=== PATIENT | female | born 1940 | race Caucasian/White ===

== ENCOUNTER 2019-08-07 16:04 | Outpatient (CLI) | payer MEDICARE, SELFPAY ==
--- NOTE | ~2019-08-07 | US_ITS ---
EXAMINATION: US venous doppler LE RT DATE: 08/07/2019 17:02 INDICATION: Right lower limb swelling TECHNIQUE: Roberts scale images without and with compression and Doppler images of the right lower extre mity veins were obtained. COMPARISON: None FINDINGS: The right common femoral vein, profunda femoral vein, femoral vein, popliteal vein, peronea l trunk, posterior tibial veins, and greater saphenous vein are patent. IMPRESSION: 1. Patent right lower extremity veins. No evidence of deep venous thrombosis. Reviewed, dictated and finalized at location A.
== END 2019-08-07 16:05 | disposition home or self-care (01) ==
LOC: ANHIMG 16:17
PROVIDERS: PCP Internal Medicine; Visit Provider Orthopaedic Surgery
DX: M79.89 Other specified soft tissue disorders (principal)
CPT/HCPCS: 93971

== ENCOUNTER 2021-10-16 12:39 | Emergency (ER) | payer MEDICARE, SELFPAY ==
--- NOTE | ~2021-10-16 | XR_ITS ---
EXAMINATION: XR hip RT 2V w AP pelvis DATE: 10/16/2021 13:52 INDICATION: Right hip pain. TECHNIQUE: An anteroposterior view of the pelvis and 2 views of right hip were obtained. COMPARISON: Right hip radiographs 08/28/2017 FINDINGS: There is a total right hip arthroplasty in near-anatomic alignment. No periprosthetic lucen cy to suggest loosening or infection. There is moderate left hip osteoarthritis. There are changes of anterior and posterior fusion procedures at L4-L5. IMPRESSION: 1. Total right hip arthroplasty in near-anatomic alignment. 2. Moderate left hip osteoarthritis. Reviewed, dictated and finalized at location A.
--- NOTE | ~2021-10-16 | XR_ITS ---
EXAMINATION: XR ankle RT min 3V, XR foot RT min 3V DATE: 10/16/2021 13:52 INDICATION: Right foot and ankle pain post fall TECHNIQUE: 1. Anteroposterior, mortise, additional oblique and lateral view of the right ankle were obtained. 2. Dorsoplantar, two oblique and lateral views of the right foot were obtained. COMPARISON: None. FINDINGS: Diffuse osteopenia. Prominent hallux valgus with change of prior bunionectomy and likely realignment osteotomy at the first metatarsal with pin fixation. 4 mm dorsal lateral displacement of an intra-art icular fracture at the lateral base of the right fifth metatarsal. No other fractures identified.. Po lyarticular osteoarthritis, severe at the first metatarsophalangeal joint, moderate severity at the t alonavicular, calcaneocuboid, second and third tarsal metatarsal joints and mild at the right ankle a nd remaining joints in the right foot. Prominent soft tissue swelling about the ankle. No ankle joint effusion. IMPRESSION: 1. Mildly displaced intra-articular fracture at the lateral base of the right fifth metatarsal. Reviewed, dictated and finalized at location A. IMPRESSION: 1. Mildly displaced intra-articular fracture at the lateral base of the right f ifth metatarsal.
[2021-10-16 12:51] VITALS: BP 127/58; PULSE 70; RESP 16; TEMP 36.5; O2SAT 98
--- NOTE | 2021-10-16 13:18 | ED.FALL ---
HPI - Fall General Chief Complaint: Fall Stated Complaint: FALL/INJURED ANKLE/FACE/HIP Time Seen by Provider: 10/16/21 13:15 Source: patient Mode of arrival: ambulatory Limitations: no limitations History of Present Illness HPI Narrative: 80-year-old female presented for complaint of multiple injuries after a fall 3 days ago. She endorses tripping over the carpet, twisting the right ankle, landing on the right hip, and striking the right side of her face on the floor. She denies loss of consciousness. Currently denies any neck pain, numbness, tingling or weakness of the upper extremities. She endorses a history of a right hip replacement and has bruising to the right hip. Endorses using a walker since the fall and states her gait is off. Endorses right ankle swelling and bruising. And reports bruising to the right cheek and jaw. Pain is worse with walking/ movement. Rates about 5/10. She has not taken anything for pain. She denies headache, dizziness, vision changes, nausea, vomiting. Related Data Home Medications Medication Instructions Recorded Confirmed acetaminophen 325 mg tablet 650 mg PO Q6H PRN 03/05/19 02/02/21 (Tylenol) aspirin 81 mg tablet,delayed 81 mg PO DAILY 03/05/19 02/02/21 release (Adult Low Dose Aspirin) metoprolol tartrate 75 mg tablet 75 mg PO Q12H 03/05/19 02/02/21 ascorbate calcium (vitamin C) 500 500 mg PO DAILY 06/16/20 02/02/21 mg tablet cholecalciferol (vitamin D3) 25 25 mcg PO DAILY 06/16/20 02/02/21 mcg (1,000 unit) capsule coenzyme Q10 10 mg capsule (Co 10 mg PO ONCE 06/16/20 02/02/21 Q-10) zinc 50 mg tablet 50 mg PO DAILY 06/16/20 02/02/21 vitamin B complex (B 1 tablet PO DAILY 02/02/21 02/02/21 Complex-Vitamin B12 tablet) Allergies Allergy/AdvReac Type Severity Reaction Status Date / Time ranitidine Allergy Mild nausea Verified 02/02/21 11:36 ciprofloxacin Allergy Unknown unknown Verified 02/02/21 11:36 erythromycin base Allergy Unknown unknown Verified 02/02/21 11:36 hydrocodone Allergy Unknown throat Verified 02/02/21 11:36 tightness iodine Allergy Unknown unknown Verified 02/02/21 11:36 naproxen Allergy Unknown unknown Verified 02/02/21 11:36 pimecrolimus Allergy Unknown unknown Verified 02/02/21 11:36 Rfcndxj-JHW-CwL Reductase Allergy Unknown unknown Verified 02/02/21 11:36 Inhibitor [Xkwlqkx-Qkf-Gvv Reductase Inhibitor] Sulfa (Sulfonamide Allergy Unknown unknown Verified 02/02/21 11:36 Antibiotics) Review of Systems Review of Systems: CONSTITUTIONAL: Denies body aches, fever, chills EYES: Denies visual changes CARDIOVASCULAR: Denies chest pain, palpitations, or edema. RESPIRATORY: Denies dyspnea. GASTROINTESTINAL: Denies abdominal pain, nausea, vomiting, or diarrhea. SKIN: Denies open wounds. MUSCULOSKELETAL: reports right hip, foot/ankle pain NEUROLOGIC: Denies headache, numbness, tingling, or weakness. All systems reviewed & are unremarkable except as noted in HPI and below PMFSH Family History Family History Father Hypertension Family history of coronary artery disease Family history of heart disease in male family member before age 55, Onset Age: 81 Mother Hypertension Cerebrovascular accident, Onset Age: 94 Family history of kidney disease Family history of arthritis Sibling Hypertension Asthma Family history of diabetes mellitus in first degree relative Other Carcinoma of colon Diabetes mellitus Family history of cardiovascular disease Family history of malignant neoplasm Social History Social History Smoking status: Never smoker Second hand tobacco smoke exposure: Yes (long time ago ) Alcohol intake: never Substance use: never Substance use type: does not use Comments At time of signature, I have reviewed and agree with nursing past medical, surgical, social and
== END 2021-10-16 14:55 | disposition home or self-care (01) ==
PROVIDERS: Emergency Provider Nurse Practitioner Family; PCP Internal Medicine
DX: S92.351A Displaced fracture of fifth metatarsal bone, right foot, initial encounter for closed fracture (principal); W18.09XA Striking against other object with subsequent fall, initial encounter; S70.01XA Contusion of right hip, initial encounter; Z96.641 Presence of right artificial hip joint; I10 Essential (primary) hypertension
CPT/HCPCS: 73502; 73610; 73630; 99214; G0463

== ENCOUNTER 2022-03-14 19:35 | Emergency (ER) | payer MEDICARE, SELFPAY ==
[2022-03-14 19:43] VITALS: BP 157/51; PULSE 86; RESP 16; TEMP 36.9; O2SAT 100
--- NOTE | 2022-03-14 20:06 | ED.EYEPROB ---
HPI - Eye Problem General Chief complaint: Neuro Symptoms/Deficit Stated complaint: EYE PROBLEMS Time Seen by Provider: 03/14/22 19:43 Source: patient Mode of arrival: ambulatory Limitations: no limitations History of Present Illness HPI Narrative: Patient presents today complaining of loss of color vision in her left eye for 3 seconds twice today in the afternoon, but also states, it could've been the TV. Since that time, her vision has returned to normal. She has no other associated symptoms to include pain, photophobia, floaters, loss of vision drainage, recent illness, weakness, numbness or tingling, dizziness, headache nausea vomiting, chest pain, shortness of breath. Related Data Home Medications Medication Instructions Recorded Confirmed acetaminophen 325 mg tablet 650 mg PO Q6H PRN Pain 03/05/19 03/14/22 (Tylenol) aspirin 81 mg tablet,delayed 81 mg PO DAILY 03/05/19 03/14/22 release (Adult Low Dose Aspirin) metoprolol tartrate 75 mg tablet 75 mg PO Q12H 03/05/19 03/14/22 ascorbate calcium (vitamin C) 500 500 mg PO DAILY 06/16/20 03/14/22 mg tablet cholecalciferol (vitamin D3) 25 25 mcg PO DAILY 06/16/20 03/14/22 mcg (1,000 unit) capsule zinc 50 mg tablet 50 mg PO DAILY 06/16/20 12/16/21 vitamin B complex (B 1 tablet PO DAILY 02/02/21 03/14/22 Complex-Vitamin B12 tablet) Allergies Allergy/AdvReac Type Severity Reaction Status Date / Time ranitidine Allergy Mild nausea Verified 03/14/22 19:41 ciprofloxacin Allergy Unknown unknown Verified 03/14/22 19:41 erythromycin base Allergy Unknown unknown Verified 03/14/22 19:41 hydrocodone Allergy Unknown throat Verified 03/14/22 19:41 tightness iodine Allergy Unknown unknown Verified 03/14/22 19:41 naproxen Allergy Unknown unknown Verified 03/14/22 19:41 pimecrolimus Allergy Unknown unknown Verified 03/14/22 19:41 Pwjuwvg-DCZ-MdJ Reductase Allergy Unknown unknown Verified 03/14/22 19:41 Inhibitor [Hgwylhz-Usl-Imx Reductase Inhibitor] Sulfa (Sulfonamide Allergy Unknown unknown Verified 03/14/22 19:41 Antibiotics) Review of Systems Review of Systems: CONSTITUTIONAL: Denies body aches, fever, chills, or sweats. EYES: Denies redness, or discharge.+loss of color in left eye-resolved ENT: Denies rhinorrhea, congestion, sore throat, or otalgia. CARDIOVASCULAR: Denies chest pain, palpitations, or edema. RESPIRATORY: Denies cough or dyspnea. GASTROINTESTINAL: Denies abdominal pain, nausea, vomiting, or diarrhea. GENITOURINARY: Denies dysuria or hematuria. SKIN: Denies rash, itching, or wounds. MUSCULOSKELETAL: Denies back pain, joint pain, or myalgia. NEUROLOGIC: Denies headache, numbness, tingling, or weakness. PSYCH: Denies depression or anxiety. [facility], [facility] Past Medical History Medical History IFG (impaired fasting glucose) Pre-diabetes Family History Family History Father Hypertension Family history of coronary artery disease Family history of heart disease in male family member before age 55, Onset Age: 81 Mother Hypertension Cerebrovascular accident, Onset Age: 94 Family history of kidney disease Family history of arthritis Sibling Hypertension Asthma Family history of diabetes mellitus in first degree relative Other Carcinoma of colon Diabetes mellitus Family history of cardiovascular disease Family history of malignant neoplasm Social History Social History Smoking status: Never smoker Second hand tobacco smoke exposure: Yes (long time ago ) Alcohol intake: never Substance use: never Substance use type: does not use Lack of Transportation: YES Lack of Food: Never True Current Housing: I Have Housing Concerned About Future Housing: No Difficulty Paying Gas/Electric Bills: No Difficulty Paying for
== END 2022-03-14 20:20 | disposition home or self-care (01) ==
PROVIDERS: Emergency Provider Nurse Practitioner; PCP Internal Medicine
DX: H53.10 Unspecified subjective visual disturbances (principal); R73.01 Impaired fasting glucose; R73.03 Prediabetes; Z79.82 Long term (current) use of aspirin
CPT/HCPCS: 99212; G0463

== ENCOUNTER → 2023-01-27 12:14 | Outpatient (CLI) | payer MEDICARE, SELFPAY ==
--- NOTE | ~2023-01-27 | MM_ITS ---
EXAMINATION: MM screening casey BI w alex HISTORY: Screening TECHNIQUE: Craniocaudal and mediolateral oblique 3-D tomosynthesis images were obtained and synthetic 2-D images were generated. CAD analysis was submitted and interpreted. COMPARISON: Comparison to multiple prior studies sequentially, with oldest reviewed study dated 03/2014. BREAST PARENCHYMAL COMPOSITION: Breast composed of scattered areas of fibroglandular density FINDINGS: There is no evidence of suspicious mass, calcification, or architectural distortion to sugg est malignancy in either breast. There has been no suspicious interval change. IMPRESSION: 1. No mammographic evidence of malignancy. 2. Recommend routine screening mammography in one year. BI-RADS Category 1: Negative Reviewed, dictated and finalized at location A. AG MACHINE OPERATOR
--- NOTE | ~2023-01-27 | DEXA_ITS ---
Bone Density Report Name: SHAUNA MINAYA Age: 82 Sex: Female Ethnicity: White Date of : 1940 Indication: postmenopausal; screening for osteoporosis; parental hip fracture; height loss; hysterectomy; Referring Provider: MIKAYLA NARAYANAN Study: Bone densitometry was performed. Exam Date: January 27, 2023 Accession number: [id number] Bone Density: Region BMD T-score Z-score Classification AP Spine (L1, L2) 1.405 3.9 6.5 Normal Femoral Neck (Left) 0.912 0.6 3.1 Normal Total Hip (Left) 1.072 1.1 3.4 Normal World Health Organization criteria for BMD impression classify patients as: Normal (T-score at or above -1.0), Osteopenia (T-score between -1.0 and -2.5), or Osteoporosis (T-score at or below -2.5). 10-year Fracture Risk: FRAX not reported because: All T-scores for Spine Total, Hip Total, Femoral Neck at or above -1.0 Previous Exams: Region Exam Age BMD T-score BMD Change BMD Change Date g/cm2 vs Baseline vs Previous AP Spine(L1, L2) 01/27/2023 82 1.405 3.9 0.328* 0.328* 01/26/2008 67 1.076 0.9 Total Hip(Left) 01/27/2023 82 1.072 1.1 -0.088* -0.088* 01/26/2008 67 1.160 1.8 *Denotes significance at 95% confidence level, LSC for AP Spine = 0.022 g/cm2, LSC for Total Hip = 0.027 g/cm2 Clinical Information Provided by Patient: Parent has had a hip fracture Has used the following medications: Vitamin D Has the following medical conditions: Hysterectomy Patient maximum height was 66 Menopause Age: 31 No regular weight bearing exercise Onset of menses at age 9.5 Number of children 2 Impression: The patient has normal bone mass. The patient has risk factors, including: parental hip fracture. The BMD for the Total Hip(Left) decreased, changing by -0.088 since the last DXA exam. Discussion: LOW RISK OF FRACTURE; BONE DENSITY IS WELL ABOVE THE MINIMUM DESIRABLE LEVEL AND ABOVE AVERAGE FOR AGE AND SEX AT ALL SKELETAL SITES TESTED. This person's bone density is above expected limits for age and sex. This is rarely clinically significant, but should be pursued if there are significant musculoskeletal complaints. The patient should follow a healthful lifestyle (good nutrition with adequate calcium and vitamin D, and appropriate weight-bearing exercise). Follow-Up: Consider repeating this study in 3 to 4 years to reassess this patient's status, or sooner if there is some new clinical indication. Reported by: VIOLETTE on 01/27/2023 1:08:00 PM.
== END ==
PROVIDERS: PCP Family Medicine; Visit Provider Family Medicine
DX: Z12.31 Encounter for screening mammogram for malignant neoplasm of breast (principal); Z78.0 Asymptomatic menopausal state
CPT/HCPCS: 77063; 77067; 77080

== ENCOUNTER 2024-05-23 14:54 | Outpatient (CLI) | payer MEDICARE, SELFPAY ==
--- NOTE | 2024-05-23 14:59 | ECG_ITS ---
Test Date: 2024-05-23 14:09:36 Measurements Intervals [place] Rate: 110 P: 0 NC: 0 QRS: -56 QRSD: 148 T: 101 QT: 362 QTc: 492 Interpretive Statements ATRIAL FIBRILLATION WITH RAPID VENTRICULAR RESPONSE RIGHT BUNDLE BRANCH BLOCK LEFT ANTERIOR FASCICULAR BLOCK LEFT VENTRICULAR HYPERTROPHY WITH ST-T CHANGE POSSIBLE ANTERIOR MYOCARDIAL INFARCTION ABNORMAL ECG No previous ECG available for comparison Electronically Signed On 05-23-2024 15:18:52 CDT by Sin Ren D.O.
--- OUTSIDE RECORDS SUMMARY | 2024-05-23 16:28 | XMS_ITS | Clinical Summary ---
Author Organization [facility] [place] [address] Address [address] [place] [address] Care Team Providers Care Feeder Catcher Tobacco Name Role Phone Maxi Pack MD Primary Care Provider [phone] Allergies Active Allergy Reactions Criticality Noted Date Comments Ciprofloxacin Erythromycin Iodinated Contrast Media Agitation Low 01/06/2022 Iodine Iodine And Iodide Containing Products Naproxen Sulfa (Sulfonamide Antibiotics) Medications acetaminophen (TYLENOL) 500 mg tablet take 1 - 2 Tablet by oral route every 6 hours as needed 0 0 4 Active ibuprofen 200 mg capsule Take 1 tablet/capsule (200 mg total) by mouth as needed Active aspirin 81 mg tablet Take 1 tablet (81 mg total) by mouth daily Active amLODIPine (NORVASC) 10 mg tablet 2 Active benazepriL (LOTENSIN) 40 mg tablet 2 Active clobetasoL (TEMOVATE) 0.05 % external solution 2 Active ketoconazole (NIZORAL) 2 % shampoo ketoconazole 2 % shampoo Active metoprolol tartrate (LOPRESSOR) 50 mg immediate release tablet TAKE ONE AND A HALF (1 & 1/2) TABLETS (75 MG TOTAL) BY MOUTH TWO (2) (TWO) TIMES A DAY 270 tablet 3 4 Active Active Problems Problem Noted Date Diagnosed Date 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 Continue to monitor. Diastolic dysfunction without heart failure 07/2016 Mitral annular calcification 07/20/2016 Obesity with body mass index 30 or greater 01/28 Paroxysmal supraventricular tachycardia 12/08/19 14 Overview (05/20/2016): Paroxysmal supraventricular tachycardia Atrial premature depolarization 08/10/2013 Ventricular premature beats 08/10/2013 Palpitations 06/29/2010 Overview (05/27/2017): Description: Palpitations Assessment & Plan (03/15/2023 5:59 PM AUTOMOTIVE SERVICE MANAGER): History of palpitations associated with premature ventricular complexes, premature atrial complexes, and nonsustained VT Symptoms are well controlled on beta damari Continue metoprolol 75 mg BID and notify us of any worsening symptoms Ventricular tachycardia 06/29/2010 Overview (05/27/2017): Description: Ventricular Tachycardia Gastroesophageal reflux disease 06/18/2009 Medical History Medical History Date Comments Diastolic dysfunction Family History Medical History Relation Name Comments Heart disease Father Stroke Mother Relation Name Status Comments Father Mother Social History Tobacco Use Types Packs/Day Years Used Date Smoking Tobacco: Never Smokeless Tobacco: Never Alcohol Use Standard Drinks/Week Comments No 0 (1 standard drink = 0.6 oz pur e alcohol) Personal Safety Answer Date Recorded Getting School Help Needed Not on file 02/03 Comments No Sex and Gender Information Value Date Recorded Sex Assigned at Not on file Legal Sex Female 12:14 AM AUTOMOTIVE SERVICE MANAGER Gender Identity Not on file Sexual Orientation Not on file Obstetrics History Last Filed Vital Signs Vital Sign Reading Time Taken Comments Blood Pressure 131/72 03/15/2023 2:49 PM AUTOMOTIVE SERVICE MANAGER Pulse 66 03/15/2023 2:49 PM AUTOMOTIVE SERVICE MANAGER Temperature 36.7 C (98.1 F) 01/06/2022 2:51 PM AUTOMOTIVE SERVICE MANAGER Respiratory Rate 12 08/19/2016 2:33 PM CDT Oxygen Saturation 98% 03/15/2023 2:49 PM AUTOMOTIVE SERVICE MANAGER Inhaled Oxygen Concentration - - Weight 76.4 kg (168 lb 6.4 oz) 03/15/2023 2:49 P M AUTOMOTIVE SERVICE MANAGER Height 157.5 cm (5' 2 ) 03/15/2023 2:49 PM AUTOMOTIVE SERVICE MANAGER Body Mass Index 30.8 03/15/2023 2:49 PM AUTOMOTIVE SERVICE MANAGER Plan of Treatment Health Maintenance Due Date Last Done Comments Depression Screening 1940 Fall Risk Assessment 1940 Osteoporosis Screening-Bone Density Scan 1940 DTaP/Tdap/Td Vaccine (1 - Tdap) 1949 Hepatitis B Screening 1956 Pneumococcal vaccine 65+ (1 of 1 - PCV) 1988 Zoster Vaccine (1 of 2) 1988 Well Visit 65+ 11/21/2003 Influenza Vaccine (#1) 2023 Insurance [facility] MEDICARE ADVANTAGE COUNT INCLUDES THE [facility] MEDICARE [facility] MEDICARE ADVANTAGE Care Teams Feeder Catcher Tobacco Relationship Specialty Start Date End Date Maxi Pack MD [address] [place] [address] PCP - General Internal Medicine 10/31/18
--- OUTSIDE RECORDS SUMMARY | 2024-05-23 16:28 | XMS_ITS | Referral Summary ---
Author Organization [facility] [address] Address [address] [place] [address] Care Team Providers Care Computer Designer Name Role Phone Maxi Pack MD Primary Care Provider [phone] Allergies Active Allergy Reactions Criticality Noted Date [...] 03/15/2023 Assessment & Plan (03/15/2023 6:00 PM MIRROR MAKER): Chronic, stable No near syncope or syncope. Continue to monitor. Diastolic dysfunction without heart failure 07/2016 Mitral annular calcification 07/20/2016 Obesity with body mass index 30 or greater 01/28 Paroxysmal supraventricular tachycardia 12/08/19 14 Overview (05/20/2016): Paroxysmal supraventricular tachycardia Atrial premature depolarization 08/10/2013 Ventricular premature beats 08/10/2013 Palpitations 06/29/2010 Overview (05/27/2017): Description: Palpitations Assessment & Plan (03/15/2023 5:59 PM MIRROR MAKER): History of palpitations associated with premature ventricular complexes, premature atrial complexes, and nonsustained VT Symptoms are well controlled on beta damari Continue metoprolol 75 mg BID and notify us of any worsening symptoms Ventricular tachycardia 06/29/2010 Overview (05/27/2017): Description: Ventricular Tachycardia Gastroesophageal reflux disease 06/18/2009 Social History Tobacco Use Types Packs/Day Years [...] on file Legal Sex Female 12:14 AM MIRROR MAKER Gender Identity Not on file Sexual Orientation Not on file Last Filed Vital Signs Vital Sign Reading Time Taken Comments Blood Pressure 131/72 03/15/2023 2:49 PM MIRROR MAKER Pulse 66 03/15/2023 2:49 PM MIRROR MAKER Temperature 36.7 C (98.1 F) 01/06/2022 2:51 PM MIRROR MAKER Respiratory Rate 12 08/19/2016 2:33 PM CDT Oxygen Saturation 98% 03/15/2023 2:49 PM MIRROR MAKER Inhaled Oxygen Concentration - - Weight 76.4 kg (168 lb 6.4 oz) 03/15/2023 2:49 P M MIRROR MAKER Height 157.5 cm (5' 2 ) 03/15/2023 2:49 PM MIRROR MAKER Body Mass Index 30.8 03/15/2023 2:49 PM MIRROR MAKER Plan of Treatment Not on file Insurance [facility] MEDICARE ADVANTAGE [facility] MEDICARE [facility] MEDIC[facility] ADVANTAGE Care Teams Computer Designer Relationship Specialty Start Date End Date Maxi Pack MD [address] [place] [address] PCP - General Internal Medicine 10/31/18
--- OUTSIDE RECORDS SUMMARY | 2024-05-23 16:28 | XMS_ITS | Continuity of Care Document ---
Author Organization [facility] [address] [place] [address] Phone Care Team Providers Care Woodyard Crane Operator Name Role Phone Mclean OD, Del Unavailable Unavailable Procedures Procedure Date Eye Exam & Treatment Refraction Eye Exam & Treatment No Script Refraction Eye Exam & Treatment Refraction Eye Exam & Treatment Refraction Eye Exam & Treatment Advance Directives Directive Yes / No Effective Date File Name No Information Encounters Encounter Description Practice Location Reason(s) For Visit Diagnoses Date Provider Providers Copied on Encounter [facility], [address] [place] [address] [address], [place], [place], [id number], [place] tel:[phone] [facility] No Information 2-201 0 Mclean OD Del. [address] , [address], [place], [place], [facility], [place]. tel:[phone] [facility], [id number] [place] [address] [address], [place], [place], [id number], [place] tel:[phone] [facility] No Information 5-200 9 Mclean OD Del. [address] , [address], [place], [address], [place]. tel:[phone] [facility], [address] [place] [address] [address], [place], [place], [id number], [place] tel:[phone] [facility] No Information Mar-1 2-200 9 Mclean OD Del. [address] , [address], [place], [place], [facility], . tel:[phone] [facility], [address], [place], [place], [id number], tel:[phone] [facility] No Information Mar-0 7-200 8 Mclean OD Del. [address] [facility] , [address], [place], [address], [place]. tel:[phone] [facility], [address], [place], [place], [id number], tel:[phone] [facility] No Information 0-200 7 Mclean OD Del. [address] [facility] , [address], [place], [place], [facility], [place]. tel:[phone] Family History Family Member Type Diagnosis Age At Onset No Information Payers Payer name Insurance type Covered alliance party ID Authortinya cb(s) [place] [id number] Social History Type Description Quantity Date Captured Comments Sex Female Smoking Status No Information Chief Complaint And Reason For Visit No Information Reason For Referral Reason For Referral No Information History Of Present Illness Encounter Date Complaint History Of Prese nt Illness No Information Functional Status Date Functional Assessmen t No Information Instructions Date Instruction Additional Infor mation No Information Assessments Type Assessment Date No Information Patient Care Teams Name Effective Dates (start - stop) Status Members No Information
--- OUTSIDE RECORDS SUMMARY | 2024-05-23 16:28 | XMS_ITS | Encounter Summary ---
Author Organization [facility] Address [address] [facility] [address] [place] [address] Care Team Providers Care Negotiations Director Name Role Phone Clarence Tee MD Primary Care Provider Jose Matthews MD Primary Care Provider [phone] Maxi Pack MD Primary Care Provider [phone] Encounter Details Date Type Department Care Team (Late st Contact Info) Description 06/18/2016 Orders Only [facility] ProviderMei MD [address] [id number] Social History Tobacco Use Types Packs/Day Years Used Date Smoking Tobacco: Never Alcohol Use Standard Drinks/Week Comments No 0 (1 standard drink = 0.6 oz pur e alcohol) Comments Unknown Sex and Gender Information Value Date Recorded Sex Assigned at Not on file 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 Historical Provider [facility] HEL[facility] CASTRO Final Result documented in this encounter Visit Diagnoses Not on filedocumented in this encounter Care Teams Negotiations Director Relationship Specialty Start Date End Date Clarence Tee MD [address] [place] [address] PCP - General 01/24/12 07/19/16 Jose Matthews MD [address] [place] [address] PCP - General Internal Medicine 07/20/16 10/30/18 Maxi Pack MD [address] [facility] [address] [place] [address] PCP - General Internal Medicine 10/31/18 documented as of this encounter
--- OUTSIDE RECORDS SUMMARY | 2024-05-23 16:28 | XMS_ITS | Clinical Summary ---
Author Organization [facility] Address [address] 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
== END 2024-05-23 14:55 | disposition home or self-care (01) ==
PROVIDERS: PCP Family Medicine; Visit Provider Family Medicine
DX: I47.10 Supraventricular tachycardia, unspecified (principal); I45.10 Unspecified right bundle-branch block; I44.4 Left anterior fascicular block
CPT/HCPCS: 93005